=== PATIENT | male | born 1940 | race African-American/Black ===

== ENCOUNTER 2017-01-07 15:30 | Emergency (ER) | payer MEDICARE, MEDICAID ==
[~2017-01-07] VITALS: Ht 177.8 cm; Wt 71.0 kg
[~2017-01-07 15:30] MED LIST: BP MEDS; METR-112 PO; SUCR1ORA PO; VALS1TAB2 PO; VALS80TA2 PO
[2017-01-07 17:13] LABS: BASOPHILS % 0.3 % (0.0-2.0); EOSINOPHILS % 0.1 % (0.0-5.0); HEMATOCRIT. 36.3 % (42.0-52.0); HEMOGLOBIN. 11.8 g/dL (14.0-18.0); LYMPHOCYTES % 9.7 % (20.0-50.0); MEAN CORPUSCULAR HEMOGLOBIN 29.7 pg (28.0-32.0); MEAN CORPUSCULAR HGB CONC 32.5 g/dL (31.0-37.0); MEAN CORPUSCULAR VOLUME 91.7 fL (80.0-94.0); MEAN PLATELET VOLUME 10.7 fl (7.4-10.4); MONOCYTES % 5.4 % (2.0-8.0); NEUTROPHILS % 84.5 % (40.0-76.0); PLATELET 154 x1000/uL (130-400); RED BLOOD CELL COUNT 3.96 mill/uL (4.7-6.1); RED CELL DISTRIBUTION WIDTH 14.3 % (11.6-14.6); WHITE BLOOD COUNT 5.9 x1000/uL (4.5-11.0)
[2017-01-07] MEDS ORDERED: SODIUM CHLORIDE 0.9% 1,000 ML IV ONE ×2 (17:14→17:34)
[2017-01-07 17:18] LABS: INR 1.1; PARTIAL THROMBOPLASTIN TIME 23.8 sec (24.0-34.0); PROTHROMBIN TIME 11.7 sec
[2017-01-07 17:26] LABS: ALANINE AMINOTRANSFERASE 27 IU/L (13-61); ALBUMIN 3.6 g/dL (3.4-5.0); ANION GAP 17; CALCIUM 9.7 mg/dL (8.5-10.1); CARBON DIOXIDE 24 mEq/L (21-32); CHLORIDE 107 mEq/L (98-107); INDEX HEMOLYSI 1 (1-3); INDEX ICTERIC 1 (1-4); INDEX LIPEMIC 1 (1-3); NT PRO B-TYPE NATRIURETIC PEP 437 pg/mL (5-125); TROPONIN I 0.02 ng/mL (0.00-0.04); UREA NITROGEN BLOOD 54 mg/dL (7-21); eGFR 45 mL/min (>60)
[2017-01-07 17:30] LABS: LACTIC ACID 2.2 mmol/L (0.4-2.0)
[2017-01-07] MEDS ORDERED: MORPHINE SULFATE 4 MG/ML CPJ (NOT FOR IM USE) IV ONE (18:00)
[2017-01-08 01:08] VITALS: BP 114/74
== END 2017-01-08 01:28 | disposition short-term general hospital (02) ==
LOC: ER 15:31
DX: E86.0 Dehydration (principal); R62.7 Adult failure to thrive; I95.9 Hypotension, unspecified; I24.9 Acute ischemic heart disease, unspecified; I10 Essential (primary) hypertension; R42 Dizziness and giddiness; Z90.49 Acquired absence of other specified parts of digestive tract
CPT/HCPCS: 36415; 71010; 74176; 80053; 83605; 83880; 84484; 85025; 85610; 85730; 87040; 93005; 96360; 96361; 99285; J7030; J2270